=== PATIENT | male | born 1990 | race Caucasian/White ===

== ENCOUNTER 2018-12-02 21:56 | Emergency (ER) | payer MEDICAID, OTHER ==
[~2018-12-02] VITALS: Ht 172.7 cm; Wt 78.2 kg
[~2018-12-02 21:56] MED LIST: IBUP800T48 PO; MECL12.574 PO
[2018-12-02 22:04] VITALS: Ht 172.7 cm; Wt 78.2 kg
[2018-12-03] MEDS ORDERED: MECLIZINE 12.5 MG TAB PO ONE
[2018-12-03] MEDS ORDERED: IBUPROFEN 800 MG TAB PO ONE
[2018-12-03 00:35] VITALS: BP 110/55; PULSE 60; RESP 20
== END 2018-12-03 00:35 | disposition home or self-care (01) ==
LOC: FTE 21:56
DX: J32.9 Chronic sinusitis, unspecified (principal)
CPT/HCPCS: Z7502; Z7610; 99282